=== PATIENT | male | born 1995 | race Caucasian/White ===

== ENCOUNTER 2017-10-27 19:27 | Inpatient (IN) ==
[2017-10-27 19:56] LABS: Bilirubin,Urine Negative (Negative); Blood,Urine Negative (Negative); Clarity,Urine Clear (Clear); Color,Urine Dark Yellow (Yellow); Glucose,Urine (UA) Normal (Normal); Ketones,Urine Negative (Negative); Leukocyte Esterase,Urine Small (Negative); Nitrite,Urine Negative (Negative); Protein,Urine Trace mg/dL (Neg-Trace); Specific Gravity,Urine 1.027 (1.010-1.025); Urobilinogen,Urine Normal (Normal)
[2017-10-27 20:01] LABS: Bacteria,Urine None Seen per hpf (None-Few); Hyaline Casts,Urine None Seen per lpf (None-Few); Squamous Epithelial Cell,Urine Many per lpf (None-Few)
--- NOTE | 2017-10-27 20:11 | Emergency Department Note ---
Disposition Clinical Impression: Substance abuse, Suicidal ideation Depression Qualifiers: Depression Type: unspecified Qualified Code(s): F32.9 - Major depressive disorder, single episode, unspecified Disposition: Still a Patient Condition: Fair Forms: ED Satisfaction Letter Psych HPI - General Chief Complaint: ED Psychiatric Symptoms Stated Complaint: SI Time Seen by Provider: 10/27/17 19:54 Source: patient Mode of arrival: ambulatory Limitations: no limitations Nursing Notes Reviewed: Yes Vital Signs Reviewed: Yes - History of Present Illness HPI Narrative: 22-year-old male with history of type II bipolar presents for evaluation of depression and wanting to hurt himself. Patient presents in the care of the father. Father states the patient's had Ups and Down's with his anxiety and depression since his grandmother several years ago. Patient was on Abilify in the past but is currently not on any medications. Patient denies any homicide ideations. Patient's had suicidal ideations in the past. Patient denies any suicide attempts. Patient does admit to marijuana as well as opioid use. Patient also admits to alcohol use. Patient denies any fevers, chest pain , short of breath, abdominal pain nausea or vomiting. - Related Data Previous Rx's Medication Instructions Recorded Promethazine [Phenergan] 25 mg PO Q6-8H PRN #9 tablet 11/13/16 Allergies Allergy/AdvReac Type Severity Reaction Status Date / Time No Known Allergies Allergy Verified 04/14/15 14:59 All systems ED: reviewed and negative except as stated. Constitutional: Denies: fever Cardiovascular: Denies: chest pain Respiratory: Denies: cough, dyspnea Gastrointestinal: Denies: abdominal pain, nausea, vomiting Past Medical History - Past Medical History Source: patient, obtained from family Medical history: Reports: non-contributory Surgical history: Reports: orthopedic, other (right hand 1st metacarpal ORIF ), other (T&A) Psychiatric history: Reports: anxiety, bipolar, depression - Social History Smoking Status: Current every day smoker Smokeless Tobacco Status: No Alcohol use: Reports: occasionally Drug use: Reports: marijuana Physical Exam - General Limitations: no limitations General appearance: alert, in no apparent distress - Head Head exam: atraumatic, normocephalic, normal inspection - Eye Eye exam: Present: normal appearance, PERRL, EOMI. Absent: miosis, mydriasis - ENT ENT exam: normal exam - Neck Neck exam: Present: normal inspection, full ROM - Chest Chest inspection: Present: normal inspection, symmetric chest wall rise - Respiratory Respiratory exam: Present: normal lung sounds bilaterally. Absent: respiratory distress - Cardiovascular Cardiovascular exam: Present: regular rate, normal rhythm. Absent: systolic murmur - Abdominal Exam Abdominal exam: Present: soft, Non-Tender - Extremities Exam Extremities exam: Present: normal inspection. Absent: pedal edema - Back Exam Back exam: Present: normal inspection - Neurological Exam Neurological exam: Present: alert, oriented X3, CN II-XII intact - Psychiatric Psychiatric exam: Present: depressed, flat affect - Skin Skin exam: Present: warm, dry, intact, normal color Course Course Narrative: Patient seen and examined. Patient will get medically cleared and evaluated by psychiatry. Vital Signs Temperature 98.6 F 10/27/17 19:29 Pulse Rate 96 10/27/17 19:29 Respiratory Rate 20 10/27/17 19:29 Blood Pressure 162/119 10/27/17 19:29 O2 Sat by Pulse Oximetry 99 10/27/17 19:29 Temperature 98.6 F 10/27/17 19:29 Pulse Rate 96 10/27/17 19:29 Respiratory Rate 20 10/27/17 19:29 Blood Pressure 162/119 10/27/17 19:29 O2 Sat by Pulse Oximetry 99 10/27/17 19:29 Oxygen Delivery Oxygen Delivery Room Air Psych - Lab Data Result diagrams: 10/27/17 19:58 Lab Results 10/27/17 10/27/17 Range/Units 19:33 19:58 WBC 11.1 (4.3-11.1) K/mcL RBC 5.03 (4.19-5.50) M/mcL Hgb 15.2 (12.9-16.9) g/dL Hct 44.0 (37.5-50.1) % MCV 87.5 (83.0-100.0) fL MCH 30.2 (28.0-33.3) pg MCHC 34.5 (31.6-35.5) g/dL RDW 12.6 (11.5-14.5) % Plt Count 273 (140-400) K/mcL MPV 10.4 (9.4-12.4) fL Immature Gran % 0.4 (0-4) % Seg Neutrophils % 72.8 % Lymphocytes % 18.5 % Monocytes % 7.1 % Eosinophils % 1.0 % Basophils % 0.2 % Neutrophils # 8.1 (1.6-8.9) K/mcL Lymphocytes # 2.1 (0.6-4.6) K/mcL Monocytes # 0.8 (0.0-1.3) K/mcL Eosinophils # 0.1 (0.0-0.6) K/mcL Basophils # 0.0 (0.0-0.2) K/mcL Urine Color Dark Yellow (Yellow) Urine Clarity Clear (Clear) Urine pH 7.0 (5.0-8.0) pH Units Ur Specific [place] 1.027 H (1.010-1.025) Urine Protein Trace (Neg-Trace) mg/dL Urine Glucose (UA) Normal (Normal) mg/dL Urine Ketones Negative (Negative) mg/dL Urine Blood Negative (Negative) Urine Nitrite Negative (Negative) Urine Bilirubin Negative (Negative) Urine Urobilinogen Normal (Normal) mg/dL Ur Leukocyte Esterase Small H (Negative) Urine Microscopic RBC 5-15 H (0-3) per hpf Urine Microscopic WBC 5-15 H (0-3) per hpf Ur Squamous Epith Cells Many H (None-Few) per lpf Urine Bacteria None Seen (None-Few) per hpf Hyaline Casts None Seen (None-Few) per lpf Ur Culture Indicated? NO. (NO) Psychiatric Medical Clearance - Medical Clearance Checklist Medical History: Metacarpal bone fracture (Acute) Tobacco abuse (Acute) Postoperative pain of extremity (Acute) Bipolar 1 disorder (Acute) Substance abuse (Acute) Depression (Acute) Suicidal ideation (Acute) Anxiety (Inactive) Chest pain (Inactive) Generalized headache (Inactive) Nausea and vomiting (Inactive) Panic attack (Inactive) Thumb fracture (Inactive) No Social History Section defined Current Vitals: Last Vital Signs Temp 98.6 F 10/27/17 19:29 Pulse 96 10/27/17 19:29 Resp 20 10/27/17 19:29 BP 162/119 10/27/17 19:29 Pulse Ox 99 10/27/17 19:29 Abnormal Labs: Abnormal lab results Ur Specific [place] 1.027 (1.010-1.025) H 10/27/17 19:33 Ur Leukocyte Esterase Small (Negative) H 10/27/17 19:33 Urine Microscopic RBC 5-15 per hpf (0-3) H 10/27/17 19:33 Urine Microscopic WBC 5-15 per hpf (0-3) H 10/27/17 19:33 Ur Squamous Epith Cells Many per lpf (None-Few) H 10/27/17 19:33 Statement of Medical Clearance: I have evaluated the patient, reviewed diagnostic information, and certify that the patient's medical condition is sufficiently stable that transfer to the psychiatric unit does not pose a significant risk of deterioration. S.B.ALisset - Zev Situation: Demographics Background: Presenting Complaint Assessment: Vital Signs, Course and respsone to treatment, Patient/Family Expectation Recommendation: Barrier(s) to disposition, Recommendation based on pending studies, treatments, or consults S.B.A.De Report Given to: Dr. Hannah Brothers Repor Time: 20:45
[2017-10-27 20:19] LABS: Basophils % 0.2 %; Eosinophils # 0.1 K/mcL (0.0-0.6); Hemoglobin 15.2 g/dL (12.9-16.9); Immature Granulocytes % 0.4 % (0-4); Lymphocytes # 2.1 K/mcL (0.6-4.6); Lymphocytes % 18.5 %; Mean Corpuscular HGB Conc 34.5 g/dL (31.6-35.5); Mean Corpuscular Hemoglobin 30.2 pg (28.0-33.3); Mean Corpuscular Volume 87.5 fL (83.0-100.0); Mean Platelet Volume 10.4 fL (9.4-12.4); Monocytes # 0.8 K/mcL (0.0-1.3); Monocytes % 7.1 %; Neutrophils # 8.1 K/mcL (1.6-8.9); Platelet Count 273 K/mcL (140-400); Red Blood Count 5.03 M/mcL (4.19-5.50); Red Cell Distribution Width 12.6 % (11.5-14.5); Segmented Neutrophils % 72.8 %
--- NOTE | 2017-10-27 20:27 | Emergency Department Note ---
Disposition Clinical Impression: Substance abuse, Suicidal ideation Depression Qualifiers: Depression Type: unspecified Qualified Code(s): F32.9 - Major depressive disorder, single episode, unspecified Disposition: Still a Patient Condition: Fair Referrals: NONE,PCP [Primary Care Provider] - Forms: ED Satisfaction Letter General Adult HPI - General Chief complaint: ED Psychiatric Symptoms Stated complaint: SI Time Seen by Provider: 10/27/17 19:54 Source: patient Mode of arrival: ambulatory Limitations: no limitations - History of Present Illness Pain Scale: 0 - Related Data Previous Rx's Medication Instructions Recorded Promethazine [Phenergan] 25 mg PO Q6-8H PRN #9 tablet 11/13/16 Allergies Allergy/AdvReac Type Severity Reaction Status Date / Time No Known Allergies Allergy Verified 04/14/15 14:59 Constitutional: Denies: fever Cardiovascular: Denies: chest pain Respiratory: Denies: cough, dyspnea Gastrointestinal: Denies: abdominal pain, nausea, vomiting Past Medical History - Past Medical History Medical history: Reports: non-contributory Surgical history: Reports: orthopedic, other (right hand 1st metacarpal ORIF ), other (T&A) Psychiatric history: Reports: anxiety, bipolar, depression - Social History Smoking Status: Current every day smoker Smokeless Tobacco Status: No Alcohol use: Reports: occasionally Drug use: Reports: marijuana Physical Exam - General Limitations: no limitations General appearance: alert, in no apparent distress Course - Reevaluation(s) Reevaluation #1: will sign out patinet to Dr. Collier for followup of labs for medical clearance and then 1A consult. Vital Signs Temperature 98.6 F 10/27/17 19:29 Pulse Rate 96 10/27/17 19:29 Respiratory Rate 20 10/27/17 19:29 Blood Pressure 162/119 10/27/17 19:29 O2 Sat by Pulse Oximetry 99 10/27/17 19:29 Temperature 98.6 F 10/27/17 19:29 Pulse Rate 96 10/27/17 19:29 Respiratory Rate 20 10/27/17 19:29 Blood Pressure 162/119 10/27/17 19:29 O2 Sat by Pulse Oximetry 99 10/27/17 19:29 Oxygen Delivery Oxygen Delivery Room Air Medical Decision Making - Lab Data Result diagrams: 10/27/17 19:58 10/27/17 19:58 Lab Results 10/27/17 10/27/17 10/27/17 Range/Units 19:33 19:58 19:58 WBC 11.1 (4.3-11.1) K/mcL RBC 5.03 (4.19-5.50) M/mcL Hgb 15.2 (12.9-16.9) g/dL Hct 44.0 (37.5-50.1) % MCV 87.5 (83.0-100.0) fL MCH 30.2 (28.0-33.3) pg MCHC 34.5 (31.6-35.5) g/dL RDW 12.6 (11.5-14.5) % Plt Count 273 (140-400) K/mcL MPV 10.4 (9.4-12.4) fL Immature Gran % 0.4 (0-4) % Seg Neutrophils % 72.8 % Lymphocytes % 18.5 % Monocytes % 7.1 % Eosinophils % 1.0 % Basophils % 0.2 % Neutrophils # 8.1 (1.6-8.9) K/mcL Lymphocytes # 2.1 (0.6-4.6) K/mcL Monocytes # 0.8 (0.0-1.3) K/mcL Eosinophils # 0.1 (0.0-0.6) K/mcL Basophils # 0.0 (0.0-0.2) K/mcL Sodium 138 (136-145) mEq/L Potassium 3.8 (3.5-5.1) mEq/L Chloride 104 (98-107) mEq/L Carbon Dioxide 25 (23-29) mEq/L BUN 11 (6-20) mg/dL Creatinine 0.95 (0.70-1.30) mg/dL Est GFR ( Amer) > 60 (> 60) Est GFR (Non-Af Amer) > 60 (> 60) BUN/Creatinine Ratio 12 (6-26) Glucose 103 (70-105) mg/dL Calculated Osmolality 286 (280-300) Calcium 9.9 (8.6-10.3) mg/dL Urine Color Dark Yellow (Yellow) Urine Clarity Clear (Clear) Urine pH 7.0 (5.0-8.0) pH Units Ur Specific [place] 1.027 H (1.010-1.025) Urine Protein Trace (Neg-Trace) mg/dL Urine Glucose (UA) Normal (Normal) mg/dL Urine Ketones Negative (Negative) mg/dL Urine Blood Negative (Negative) Urine Nitrite Negative (Negative) Urine Bilirubin Negative (Negative) Urine Urobilinogen Normal (Normal) mg/dL Ur Leukocyte Esterase Small H (Negative) Urine Microscopic RBC 5-15 H (0-3) per hpf Urine Microscopic WBC 5-15 H (0-3) per hpf Ur Squamous Epith Cells Many H (None-Few) per lpf Urine Bacteria None Seen (None-Few) per hpf Hyaline Casts None Seen (None-Few) per lpf Ur Culture Indicated? NO. (NO) Attestation Statement - Attestation Attestation: I examined this patient and my medical decision-making was reviewed with the Resident Physician. I agree with the documented findings, disposition and treatment plan as described except to the extent set forth below. 22 year old male prsentse to the ED with complaints of SI and wating to hurt himself without any plan set into play and states that he has not been becoming more depressed and is bipolar type II. We will do medical clearance and then consult 1A
[2017-10-27 22:06] LABS: BUN/Creatinine Ratio 12 (6-26); Blood Urea Nitrogen 11 mg/dL (6-20); Calcium 9.9 mg/dL (8.6-10.3); Carbon Dioxide 25 mEq/L (23-29); Glucose 103 mg/dL (70-105); eGFR For African Americans > 60 (> 60); eGFR For Non-African Americans > 60 (> 60)
[2017-10-27 22:07] LABS: Chloride 104 mEq/L (98-107); Osmolality,Calculated 286 (280-300); Potassium 3.8 mEq/L (3.5-5.1); Sodium 138 mEq/L (136-145)
[2017-10-27 23:32] LABS: Amphetamine Screen,Urine Negative ng/mL (Cutoff=1000); Barbiturate Screen,Urine Negative ng/mL (Cutoff=200); Benzodiazepines Screen,Urine Negative ng/mL (Cutoff=200); Cannabinoid Screen,Urine Positive ng/mL (Cutoff = 50); Cocaine Screen,Urine Negative ng/mL (Cutoff= 300); Phencyclidine Screen,Urine Negative ng/mL (Cutoff=25)
[2017-10-27 23:42] LABS: Ethanol < 10 mg/dL (Less than 10); Salicylate < 2.5 mg/dL (15.0-30.0)
[2017-10-27 23:43] LABS: Acetaminophen < 10 mcg/mL (10-20)
[2017-10-27 23:52] LABS: Opiate Screen,Urine Positive ng/mL (Cutoff=300)
[2017-10-28] MEDS ORDERED: *HR* LORazepam 1 MG TABLET PO ONE (01:26)
[2017-10-28] MEDS ORDERED: Mag Hydrox/Al Hydrox/Simeth 30 ML UDC PO PRN (01:50)
[2017-10-28] MEDS ORDERED: *HR* LORazepam 2 MG/ML VIAL IM PRN (01:50)
[2017-10-28] MEDS ORDERED: Haloperidol Lactate 5 MG/ML VIAL IM PRN (01:50)
[2017-10-28] MEDS ORDERED: *HR* LORazepam 1 MG TABLET PO PRN (01:50)
[2017-10-28] MEDS ORDERED: MOM Conc 10 ML UD.LIQ PO PRN (01:50)
[2017-10-28] MEDS ORDERED: Ibuprofen 400 MG TABLET PO PRN (01:50)
--- NOTE | 2017-10-28 10:59 | Psychiatry History & Physical ---
Date of Encounter: 10/28/17 Time of Encounter: 10:30 History of Present Illness Patient Stated Chief Complaint: Suicidal ideation Medicare Admission Attestation: For traditional Medicare patients the provided hospital inpatient services are reasonable and necessary and in the case of services not specified as inpatient -only under 42 CFR 419.22 (n), that they are appropriately provided as inpatient services in accordance 42 CFR 412.3. For Critical Access Hospital the patient may reasonably be expected to be discharged or transferred to a hospital within 96 hours after admission to the Critical Access Hospital. Admitted From: Emergency Dept History of Present Illness: Mr. Clancy is a 22 year old male admitted from the emergency department for suicidal ideation. Patient reports feeling hopeless and suicidal he is interested in sobriety from alcohol and drugs and wants to get help to accomplish sobriety and take his medication. He tell me that he did well on medication past including Geodon. UDS was positive for THC and opiates. Patient admitted to drinking alcohol on weekends and he was still complaining of withdrawal symptoms and shakiness. Patient lives with a girlfriend and 2 children and he is scheduled for counseling appointments at [facility]. He reported poor sleep, mood swings, depressed feelings, guilty feelings and hopelessness and suicidal thoughts. Patient was hospitalized in this units in 03/02/2012 for similar presentation for depression and suicidal ideation and was treated was she was "results. But he did not comply or continue his treatment. Past Med Surg Social Fam HX - Past Medical History Medical history: non-contributory - Past Psychiatric History Psychiatric history: Reports: bipolar, depression, previous psychiatric hospitalization Past psychiatric history details: Hospitalized 03/02/2012 for depression and suicidal ideation when he was 16 years old. Family psychiatric history: Unknown Family History of Suicide: Unknown - Past Surgical History Surgical History: orthopedic, other, other - Social History Smoking Status: Current every day smoker Smokeless Tobacco Status: No Alcohol use: occasionally Drug use: marijuana Medications & Allergies No Known Home Drugs 10/28/17 [History] 3 Allergy/AdvReac Type Severity Reaction Status Date / Time No Known Allergies Allergy Verified 10/28/17 08:42 Review of Systems Psychiatric: Reports: depression, suicidal ideation, hopelessness, mood swings Exam - Constitutional Vitals: Temp Pulse Resp BP Pulse Ox 97.8 F 80 16 149/119 98 10/28/17 09:00 10/28/17 09:00 10/28/17 09:00 10/28/17 09:00 10/28/17 00:21 General appearance: age & developmentally appropriate, well-nourished, disheveled - Musculoskeletal Gait: normal Station: relaxed Strength & Tone: normal for patient - Psychiatric Patient Orientation: Yes Person, Yes Time, Yes Place Level of alertness: Alert Behavior: calm, cooperative Psychomotor activity: Normal Eye Contact: Maintains Eye Contact Mood Description: Euthymic/stable Affect description: congruent with mood, full range Speech Volume: Normal Speech pattern: normal rate, normal rhythm, normal tone, fluent, spontaneous Language & Vocabulary: consistent with education Thought Process: Linear, Goal Oriented Thought Content: Yes Suicidal ideation, No Homicidal ideation, No Overt delusions Perceptual Disturbances: No Auditory hallucinations, No Visual hallucinations Attention Span Ability: Capable of Focused Attention Memory Description: Grossly Intact Patient Reliability: Reliable Historian Fund of knowledge: Yes abstraction ability, Yes average, Yes aware of current events Intelligence Estimate: Average Judgment: Limited Insight: Partial Results - Labs Labs: Laboratory Last Values WBC 11.1 K/mcL (4.3-11.1) 10/27/17 19:58 RBC 5.03 M/mcL (4.19-5.50) 10/27/17 19:58 Hgb 15.2 g/dL (12.9-16.9) 10/27/17 19:58 Hct 44.0 % (37.5-50.1) 10/27/17 19:58 MCV 87.5 fL (83.0-100.0) 10/27/17 19:58 MCH 30.2 pg (28.0-33.3) 10/27/17 19:58 MCHC 34.5 g/dL (31.6-35.5) 10/27/17 19:58 RDW 12.6 % (11.5-14.5) 10/27/17 19:58 Plt Count 273 K/mcL (140-400) 10/27/17 19:58 MPV 10.4 fL (9.4-12.4) 10/27/17 19:58 Immature Gran % 0.4 % (0-4) 10/27/17 19:58 Seg Neutrophils % 72.8 % 10/27/17 19:58 Lymphocytes % 18.5 % 10/27/17 19:58 Monocytes % 7.1 % 10/27/17 19:58 Eosinophils % 1.0 % 10/27/17 19:58 Basophils % 0.2 % 10/27/17 19:58 Neutrophils # 8.1 K/mcL (1.6-8.9) 10/27/17 19:58 Lymphocytes # 2.1 K/mcL (0.6-4.6) 10/27/17 19:58 Monocytes # 0.8 K/mcL (0.0-1.3) 10/27/17 19:58 Eosinophils # 0.1 K/mcL (0.0-0.6) 10/27/17 19:58 Basophils # 0.0 K/mcL (0.0-0.2) 10/27/17 19:58 Sodium 138 mEq/L (136-145) 10/27/17 19:58 Potassium 3.8 mEq/L (3.5-5.1) 10/27/17 19:58 Chloride 104 mEq/L (98-107) 10/27/17 19:58 Carbon Dioxide 25 mEq/L (23-29) 10/27/17 19:58 BUN 11 mg/dL (6-20) 10/27/17 19:58 Creatinine 0.95 mg/dL (0.70-1.30) 10/27/17 19:58 Est GFR ( Amer) > 60 (> 60) 10/27/17 19:58 Est GFR (Non-Af Amer) > 60 (> 60) 10/27/17 19:58 BUN/Creatinine Ratio 12 (6-26) 10/27/17 19:58 Glucose 103 mg/dL (70-105) 10/27/17 19:58 Calculated Osmolality 286 (280-300) 10/27/17 19:58 Calcium 9.9 mg/dL (8.6-10.3) 10/27/17 19:58 Urine Color Dark Yellow (Yellow) 10/27/17 19:33 Urine Clarity Clear (Clear) 10/27/17 19:33 Urine pH 7.0 pH Units (5.0-8.0) 10/27/17 19:33 Ur Specific [place] 1.027 (1.010-1.025) H 10/27/17 19:33 Urine Protein Trace mg/dL (Neg-Trace) 10/27/17 19:33 Urine Glucose (UA) Normal mg/dL (Normal) 10/27/17 19:33 Urine Ketones Negative mg/dL (Negative) 10/27/17 19:33 Urine Blood Negative (Negative) 10/27/17 19:33 Urine Nitrite Negative (Negative) 10/27/17 19:33 Urine Bilirubin Negative (Negative) 10/27/17 19:33 Urine Urobilinogen Normal mg/dL (Normal) 10/27/17 19:33 Ur Leukocyte Esterase Small (Negative) H 10/27/17 19:33 Urine Microscopic RBC 5-15 per hpf (0-3) H 10/27/17 19:33 Urine Microscopic WBC 5-15 per hpf (0-3) H 10/27/17 19:33 Ur Squamous Epith Cells Many per lpf (None-Few) H 10/27/17 19:33 Urine Bacteria None Seen per hpf (None-Few) 10/27/17 19:33 Hyaline Casts None Seen per lpf (None-Few) 10/27/17 19:33 Ur Culture Indicated? NO. (NO) 10/27/17 19:33 Salicylates < 2.5 mg/dL (15.0-30.0) L 10/27/17 19:58 Urine Opiates Screen Positive ng/mL (Ijmtpt=608) H 10/27/17 19:33 Acetaminophen < 10 mcg/mL (10-20) L 10/27/17 19:58 Ur Barbiturates Screen Negative ng/mL (Mjiknr=909) 10/27/17 19:33 Ur Phencyclidine Scrn Negative ng/mL (Cutoff=25) 10/27/17 19:33 Ur Amphetamines Screen Negative ng/mL (Hzpeqe=3893) 10/27/17 19:33 U Benzodiazepines Scrn Negative ng/mL (Jnsunk=084) 10/27/17 19:33 Urine Cocaine Screen Negative ng/mL (Cutoff= 300) 10/27/17 19:33 U Marijuana (THC) Screen Positive ng/mL (Cutoff = 50) H 10/27/17 19:33 Ethyl Alcohol < 10 mg/dL (Less than 10) 10/27/17 19:58 Assessment and Plan (1) Bipolar 1 disorder Current visit: No Status: Acute Plan: Admit inpatient for safety and stabilization, Close observation, Suicide Precautions per unit protocol, Encourage participation in unit milieu, Group Therapy, Monitor sleep, Monitor appetite Additional Plan: Will order Geodon 20 mg twice a day. Benefits and side effects were discussed was patient and he is willing to start. Risks, benefits, side effects, alternatives discussed w/pt: Yes Patient agreeable to treatment: Yes Estimated Length of Stay (Days): 5 (2) Substance abuse Current visit: Yes Status: Acute Plan: Admit inpatient for safety and stabilization, Close observation, Suicide Precautions per unit protocol, Encourage participation in unit milieu, Group Therapy, Monitor sleep, Monitor appetite Risks, benefits, side effects, alternatives discussed w/pt: Yes Patient agreeable to treatment: Yes
[2017-10-28] MEDS: Ziprasidone 20 MG CAPSULE PO SCH ×2 (11:07→20:33)
[2017-10-28] MEDS: Nicotine 2 MG GUM BC PRN ×2 (11:08→17:22)
[2017-10-28] MEDS: hydrOXYzine pamoate 25 MG CAPSULE PO PRN (20:33)
[2017-10-28] MEDS: traZODone 50 MG TABLET PO PRN (20:33)
[2017-10-29] MEDS: Nicotine 2 MG GUM BC PRN ×3 (09:17→20:22)
[2017-10-29] MEDS: Ziprasidone 20 MG CAPSULE PO SCH ×2 (09:17→20:22)
--- NOTE | 2017-10-29 15:12 | Psychiatry Progress Note ---
Date of Encounter: 10/29/17 Time of Encounter: 15:10 Subjective Interval history: Patient seen for follow-up. Case discussed was treatment team. Staff report patient is medication compliant and attending groups and denied any side effects from medication. He denies suicidal ideation he is anxious about treatment for alcohol was encouraged to manager social services is working on setting him up with appointment. Review of Systems Psychiatric: Reports: depression, suicidal ideation, hopelessness, mood swings Results - Vital Signs Vital Signs: Temp Pulse Resp BP Pulse Ox 98.2 F 75 16 144/101 98 10/29/17 08:44 10/29/17 08:44 10/29/17 08:44 10/29/17 08:44 10/28/17 00:21 Assessment and Plan (1) Bipolar 1 disorder Current visit: No Status: Acute Plan: Continue hospitalization, Close observation, Suicide Precautions per unit protocol, Encourage participation in unit milieu, Group Therapy, Monitor sleep, Monitor appetite Risks, benefits, side effects, alternatives discussed w/pt: Yes Patient agreeable to treatment: Yes (2) Substance abuse Current visit: Yes Status: Acute Plan: Continue hospitalization, Close observation, Suicide Precautions per unit protocol, Encourage participation in unit milieu, Group Therapy, Monitor sleep, Monitor appetite Risks, benefits, side effects, alternatives discussed w/pt: Yes Patient agreeable to treatment: Yes Consult Discharge Plan - Plan Referrals: [facility] [Outside] - 10/31/17 1:00 pm (The above appointment is with Sanaz Burgos, for primary health care and medication management services. Your needs for Vivitrol will be assessed and treated as indicated as well. Please arrive 15 minutes early for your new patient appointment, and bring the following items with you: insurance card (if you do not have insurance bring proof of income to apply for the sliding fee scale), photo ID, and any medication you take in the original bottles. If you are unable to bring these items, your appointment will be rescheduled. If you are unable to keep this appointment, 24 hour business notice of cancellation is expected. If you miss your new patient appointment, you cannot be re-scheduled in this practice for 3 months. This practice does not prescribe narcotics or see [facility] benefit recipients. ) Ken [facility] [Outside] - 11/04/17 10:00 am (The above appointment is with Timur White for outpatient mental health and substance abuse counseling services.) Psychiatry Exam - Constitutional Vitals: Temp Pulse Resp BP Pulse Ox 98.2 F 75 16 144/101 98 10/29/17 08:44 10/29/17 08:44 10/29/17 08:44 10/29/17 08:44 10/28/17 00:21 General appearance: age & developmentally appropriate, well-groomed, well- nourished - Musculoskeletal Gait: normal Station: relaxed Strength & Tone: normal for patient - Psychiatric Patient Orientation: Yes Person, Yes Time, Yes Place Level of alertness: Alert Behavior: calm, cooperative Psychomotor activity: Increased Eye Contact: Maintains Eye Contact Mood Description: Euthymic/stable Affect description: congruent with mood, full range Speech Volume: Normal Speech pattern: normal rate, normal rhythm, normal tone, fluent, spontaneous, excessive Language & Vocabulary: consistent with education Thought Process: Linear, Goal Oriented Thought Content: No Suicidal ideation, No Homicidal ideation, No Overt delusions Perceptual Disturbances: No Auditory hallucinations, No Visual hallucinations Attention Span Ability: Capable of Focused Attention Memory Description: Grossly Intact Patient Reliability: Reliable Historian Fund of knowledge: Yes abstraction ability, Yes aware of current events Intelligence Estimate: Average Judgment: Limited Insight: Partial
[2017-10-29] MEDS: hydrOXYzine pamoate 25 MG CAPSULE PO PRN (20:22)
[2017-10-29] MEDS: traZODone 50 MG TABLET PO PRN (20:22)
[2017-10-30] MEDS: Ziprasidone 20 MG CAPSULE PO SCH (08:48)
[2017-10-30] MEDS: Nicotine 2 MG GUM BC PRN ×2 (08:48→12:39)
[2017-10-30 10:03] VITALS: BP 150/106
--- NOTE | 2017-10-30 11:21 | Discharge Summary ---
Date of Encounter: 10/30/17 Time of Encounter: 11:00 Diagnosis - Discharge Diagnosis (1) Bipolar 1 disorder Status: Acute (2) Substance abuse Status: Acute Medications - Discharge Medications Prescriptions: traZODone [TraZODone] 50 mg PO HS PRN #30 tablet PRN Reason: Insomnia Ziprasidone [Geodon] 20 mg PO BID #60 capsule Ziprasidone [Geodon] 20 mg PO BID #60 capsule 10/30/17 [Rx] traZODone [TraZODone] 50 mg PO HS PRN #30 tablet 10/30/17 [Rx] 3 Allergy/AdvReac Type Severity Reaction Status Date / Time No Known Allergies Allergy Verified 10/28/17 08:42 Provider Date of admission: 10/28/17 01:41 Primary care physician: PCP NONE Discharging clinician: Woo Puentes Psychiatry Exam - Constitutional Vitals: Temp Pulse Resp BP Pulse Ox 97.2 F L 83 16 150/106 98 10/30/17 09:00 10/30/17 09:00 10/30/17 09:00 10/30/17 09:00 10/28/17 00:21 General appearance: age & developmentally appropriate, well-groomed, well- nourished - Musculoskeletal Gait: normal Station: relaxed Strength & Tone: normal for patient - Psychiatric Patient Orientation: Yes Person, Yes Time, Yes Place Level of alertness: Alert Behavior: calm, cooperative Psychomotor activity: Normal Eye Contact: Maintains Eye Contact Mood Description: Euthymic/stable Affect description: congruent with mood, full range Speech Volume: Normal Speech pattern: normal rate, normal rhythm, normal tone, fluent, spontaneous Language & Vocabulary: consistent with education Thought Process: Linear, Goal Oriented Thought Content: No Suicidal ideation, No Homicidal ideation, No Overt delusions Perceptual Disturbances: No Auditory hallucinations, No Visual hallucinations Attention Span Ability: Capable of Focused Attention Memory Description: Grossly Intact Patient Reliability: Reliable Historian Fund of knowledge: Yes abstraction ability, Yes aware of current events Intelligence Estimate: Average Judgment: Limited Insight: Partial Hospital Course Hospital course: Mr. Clancy is a 22 year old male admitted for suicidal ideation. For details admission please see H&P On the unit the patient was started on Geodon and trazodone for sleep. He responded to medication and reported improved sleep and less anxiety he was compliant with medication and attending groups and activities. Review of his vital signs indicated signs of hypertension. This was brought to his attention and I advised to address its with his primary care physician who was see him shortly after discharge. Prior to discharge patient was denying any suicidal ideation, mood was stable sleep and appetite were improved. He was educated about substance abuse and the need to maintain sobriety and comply with his medication and appointments. He was future oriented, his discharge plans were completed by social work. He is discharged in stable condition. - Time Spent with Patient Total time spent providing and/or coordinating discharge services: Greater than 30 minutes Assessment and Plan - Patient/Caregiver Discharge Instructions Activity: resume usual activities as tolerated Diet: regular diet - Follow up Plan Follow up with: [facility] [Outside] - 10/31/17 1:00 pm (The above appointment is with Sanaz Burgos, for primary health care and medication management services. Your needs for Vivitrol will be assessed and treated as indicated as well. Please arrive 15 minutes early for your new patient appointment, and bring the following items with you: insurance card (if you do not have insurance bring proof of income to apply for the sliding fee scale), photo ID, and any medication you take in the original bottles. If you are unable to bring these items, your appointment will be rescheduled. If you are unable to keep this appointment, 24 hour business notice of cancellation is expected. If you miss your new patient appointment, you cannot be re-scheduled in this practice for 3 months. This practice does not prescribe narcotics or see [facility] benefit recipients. ) [facility] [Outside] - 11/04/17 10:00 am (The above appointment is with Timur White for outpatient mental health and substance abuse counseling services.) Functional capacity at discharge: independent ambulation Overall status at discharge: Stable Disposition: Home, Self-Care Quality - Multiple Antipsychotics Patient discharged on 2 or more antipsychotic medications: No Procedures - Procedures Procedures: Medication Management, Crisis Stabilization, Supportive Therapy, Group Therapy, Psychoeducational Therapy
== END 2017-10-30 13:50 | disposition home or self-care (01) | DRG 753 ==
LOC: EMEROO 19:27 → SUATTDRO 10-28 01:41 → 1ANU 10-28 01:41
PROVIDERS: ADMIT Psychiatry & Neurology Psychiatry; ATTEND Psychiatry & Neurology Psychiatry

== ENCOUNTER 2020-05-04 18:48 | Observation (INO) ==
[2020-05-04] MEDS ORDERED: 0.9 % Sodium Chloride 1,000 ML IVC ONE (19:16)
[2020-05-04 19:39] LABS: Basophils % 0.1 %; Eosinophils # 0.1 K/mcL (0.0-0.6); Eosinophils % 1.1 %; Hematocrit 44.4 % (37.5-50.1); Hemoglobin 15.3 g/dL (12.9-16.9); Immature Granulocytes % 0.5 % (0-4); Lymphocytes % 24.9 %; Mean Corpuscular HGB Conc 34.5 g/dL (31.6-35.5); Mean Corpuscular Hemoglobin 32.7 pg (28.0-33.3); Mean Corpuscular Volume 94.9 fL (83.0-100.0); Mean Platelet Volume 9.5 fL (9.4-12.4); Monocytes # 0.5 K/mcL (0.0-1.3); Monocytes % 6.6 %; Neutrophils # 5.5 K/mcL (1.6-8.9); Platelet Count 268 K/mcL (140-400); Red Blood Count 4.68 M/mcL (4.19-5.50); Red Cell Distribution Width 12.5 % (11.5-14.5); Segmented Neutrophils % 66.8 %; White Blood Count 8.2 K/mcL (4.3-11.1)
[2020-05-04] MEDS ORDERED: *HR* LORazepam 2 MG/ML VIAL IVP ONE (19:40)
[2020-05-04 19:54] LABS: Acetaminophen < 10 mcg/mL (10-20); Alanine Aminotransferase 20 Units/L (7-52); Albumin 4.6 g/dL (3.5-5.7); Albumin/Globulin Ratio 1.7 (1.1-2.2); Alkaline Phosphatase 82 Units/L (34-104); Aspartate Amino Transferase 25 Units/L (13-39); BUN/Creatinine Ratio 8 (6-26); Bilirubin,Total 0.3 mg/dL (0.3-1.0); Blood Urea Nitrogen 6 mg/dL (6-20); Calcium 8.7 mg/dL (8.6-10.3); Carbon Dioxide 25 mEq/L (23-29); Chloride 105 mEq/L (98-107); Ethanol 453 mg/dL (Less than 10); Globulin 2.7 g/dL (2.4-3.5); Glucose 126 mg/dL (70-105); Lipase 29 Units/L (11-82); Osmolality,Calculated 287 (280-300); Potassium 3.7 mEq/L (3.5-5.1); Salicylate < 2.5 mg/dL (15.0-30.0); Sodium 139 mEq/L (136-145); Total Protein 7.3 g/dL (6.4-8.9); eGFR For African Americans > 60 (> 60); eGFR For Non-African Americans > 60 (> 60)
[2020-05-04] MEDS ORDERED: Tdap (Boostrix) Vaccine 0.5 ML SYRINGE IM ONE (20:10)
[2020-05-04 20:54] LABS: Amphetamine Screen,Urine Negative ng/mL (Cutoff=1000); Barbiturate Screen,Urine Negative ng/mL (Cutoff=200); Benzodiazepines Screen,Urine Negative ng/mL (Cutoff=200); Cannabinoid Screen,Urine Positive ng/mL (Cutoff = 50); Cocaine Screen,Urine Negative ng/mL (Cutoff= 300); Opiate Screen,Urine Negative ng/mL (Cutoff=300); Phencyclidine Screen,Urine Negative ng/mL (Cutoff=25)
[2020-05-04] MEDS ORDERED: Piperacillin/Tazobactam 3.375 GM in 0.9 % Sodium Chloride Mini Bag 100 ML IVPB ONE (21:51)
[2020-05-05] MEDS ORDERED: Naloxone 0.4 MG/ML INJ IVP PRN (00:37)
[2020-05-05] MEDS ORDERED: *HR* LORazepam 2 MG/ML VIAL IVP PRN ×3 (02:30)
[2020-05-05] MEDS: Thiamine (B-1) 100 MG, Folic Acid 1 MG, MVI, adult with vitamin K 10 ML in 0.9 % Sodi... IVPB SCH (04:15)
[2020-05-05] MEDS: Nicotine 21 MG PATCH.TD24 TD SCH (04:19)
[2020-05-05 05:49] LABS: Hematocrit 44.1 % (37.5-50.1); Hemoglobin 14.9 g/dL (12.9-16.9); Mean Corpuscular HGB Conc 33.8 g/dL (31.6-35.5); Mean Corpuscular Volume 97.8 fL (83.0-100.0); Mean Platelet Volume 9.5 fL (9.4-12.4); Platelet Count 239 K/mcL (140-400); Red Blood Count 4.51 M/mcL (4.19-5.50); Red Cell Distribution Width 12.5 % (11.5-14.5); White Blood Count 8.1 K/mcL (4.3-11.1)
[2020-05-05 06:01] LABS: Alanine Aminotransferase 18 Units/L (7-52); Albumin 4.2 g/dL (3.5-5.7); Albumin/Globulin Ratio 1.7 (1.1-2.2); Alkaline Phosphatase 73 Units/L (34-104); Aspartate Amino Transferase 22 Units/L (13-39); BUN/Creatinine Ratio 8 (6-26); Bilirubin,Total 0.3 mg/dL (0.3-1.0); Blood Urea Nitrogen 6 mg/dL (6-20); Calcium 8.7 mg/dL (8.6-10.3); Carbon Dioxide 26 mEq/L (23-29); Chloride 110 mEq/L (98-107); Globulin 2.5 g/dL (2.4-3.5); Glucose 95 mg/dL (70-105); Osmolality,Calculated 295 (280-300); Phosphorous 3.2 mg/dL (2.7-4.5); Potassium 4.1 mEq/L (3.5-5.1); Sodium 144 mEq/L (136-145); Total Protein 6.7 g/dL (6.4-8.9); eGFR For African Americans > 60 (> 60); eGFR For Non-African Americans > 60 (> 60)
[2020-05-05] MEDS: Piperacillin/Tazobactam 3.375 GM in 0.9 % Sodium Chloride Mini Bag 100 ML IVPB SCH ×3 (08:41→23:50)
[2020-05-05] MEDS ORDERED: Nicotine 2 MG GUM BC PRN (12:47)
[2020-05-05] MEDS ORDERED: Acetaminophen 325 MG TABLET PO ONE (14:12)
[2020-05-05] MEDS ORDERED: Acetaminophen 325 MG TABLET PO PRN (14:42)
[2020-05-05] MEDS: Ziprasidone 20 MG CAPSULE PO SCH (21:03)
[2020-05-05] MEDS: traZODone 50 MG TABLET PO SCH (21:03)
[2020-05-05] MEDS: Melatonin 3 MG TABLET PO SCH (21:03)
[2020-05-06] MEDS ORDERED: Melatonin 3 MG TABLET PO ONE (00:45)
[2020-05-06 01:24] LABS: BUN/Creatinine Ratio 16 (6-26); Blood Urea Nitrogen 13 mg/dL (6-20); Carbon Dioxide 24 mEq/L (23-29); Chloride 107 mEq/L (98-107); Glucose 114 mg/dL (70-105); Magnesium 1.9 mg/dL (1.6-2.6); Osmolality,Calculated 287 (280-300); Phosphorous 4.1 mg/dL (2.7-4.5); Sodium 138 mEq/L (136-145); eGFR For African Americans > 60 (> 60); eGFR For Non-African Americans > 60 (> 60)
[2020-05-06 06:41] LABS: Hematocrit 41.9 % (37.5-50.1); Hemoglobin 14.1 g/dL (12.9-16.9); Mean Corpuscular Hemoglobin 33.1 pg (28.0-33.3); Mean Corpuscular Volume 98.4 fL (83.0-100.0); Red Blood Count 4.26 M/mcL (4.19-5.50)
[2020-05-06 06:42] LABS: Mean Corpuscular HGB Conc 33.7 g/dL (31.6-35.5); Mean Platelet Volume 10.2 fL (9.4-12.4); Platelet Count 234 K/mcL (140-400); Red Cell Distribution Width 12.4 % (11.5-14.5)
[2020-05-06] MEDS: Ziprasidone 20 MG CAPSULE PO SCH ×2 (07:54→20:27)
[2020-05-06] MEDS: Piperacillin/Tazobactam 3.375 GM in 0.9 % Sodium Chloride Mini Bag 100 ML IVPB SCH (07:54)
[2020-05-06] MEDS: Nicotine 21 MG PATCH.TD24 TD SCH (07:57)
[2020-05-06] MEDS: Thiamine (B-1) 100 MG, Folic Acid 1 MG, MVI, adult with vitamin K 10 ML in 0.9 % Sodi... IVPB SCH (17:48)
[2020-05-06] MEDS: Melatonin 3 MG TABLET PO SCH ×2 (18:19→20:05)
[2020-05-06] MEDS: traZODone 50 MG TABLET PO SCH (20:04)
[2020-05-07 04:22] LABS: Hematocrit 42.2 % (37.5-50.1); Hemoglobin 14.4 g/dL (12.9-16.9); Mean Corpuscular HGB Conc 34.1 g/dL (31.6-35.5); Mean Corpuscular Hemoglobin 32.8 pg (28.0-33.3); Mean Corpuscular Volume 96.1 fL (83.0-100.0); Mean Platelet Volume 9.6 fL (9.4-12.4); Platelet Count 226 K/mcL (140-400); Red Blood Count 4.39 M/mcL (4.19-5.50); Red Cell Distribution Width 12.1 % (11.5-14.5); White Blood Count 7.4 K/mcL (4.3-11.1)
[2020-05-07 04:40] LABS: BUN/Creatinine Ratio 10 (6-26); Blood Urea Nitrogen 9 mg/dL (6-20); Carbon Dioxide 24 mEq/L (23-29); Chloride 105 mEq/L (98-107); Glucose 111 mg/dL (70-105); Magnesium 1.9 mg/dL (1.6-2.6); Osmolality,Calculated 283 (280-300); Phosphorous 3.5 mg/dL (2.7-4.5); Potassium 3.8 mEq/L (3.5-5.1); Sodium 137 mEq/L (136-145); eGFR For African Americans > 60 (> 60); eGFR For Non-African Americans > 60 (> 60)
[2020-05-07] MEDS: Ziprasidone 20 MG CAPSULE PO SCH ×2 (09:02→22:08)
[2020-05-07] MEDS: Nicotine 21 MG PATCH.TD24 TD SCH (09:02)
[2020-05-07] MEDS: Thiamine (B-1) 100 MG, Folic Acid 1 MG, MVI, adult with vitamin K 10 ML in 0.9 % Sodi... IVPB SCH (17:00)
[2020-05-07] MEDS: traZODone 50 MG TABLET PO SCH (22:07)
[2020-05-07] MEDS: Melatonin 3 MG TABLET PO SCH (22:08)
[2020-05-08] MEDS: Nicotine 21 MG PATCH.TD24 TD SCH (08:58)
[2020-05-08] MEDS: Ziprasidone 20 MG CAPSULE PO SCH (08:59)
[2020-05-08] MEDS ORDERED: Multivit/Ca/Min/Fe/FA 1 TAB TABLET PO SCH (09:00)
[2020-05-08 10:52] VITALS: BP 140/89
== END 2020-05-08 14:20 | disposition home or self-care (01) ==
LOC: EMEROOARM 18:48 → 2NNU 18:48 → SUATTDRO 23:32 → 2NNU 05-05 00:24 → 3ANU 05-06 15:42
PROVIDERS: ADMIT Family Medicine; ATTEND Internal Medicine